=== PATIENT | female | born 1965 | race Hispanic/Latino ===

== ENCOUNTER 2021-05-27 09:47 | Day surgery (SDC) | payer OTHER, SELFPAY | END 2021-05-27 11:40 | disposition home or self-care (01) | LOC: CSHSDC/OP 09:47 | PROVIDERS: ATTEND Internal Medicine | DX: Z23 Encounter for immunization (principal); U07.1 COVID-19 | CPT/HCPCS: 96365; J3490; M0243; Q0244 ==

== ENCOUNTER 2023-05-15 13:39 | Outpatient (CLI) | payer BC | END 2023-05-15 13:40 | disposition home or self-care (01) | LOC: CSHMAMMO 13:39 | PROVIDERS: ATTEND Internal Medicine | DX: Z12.31 Encounter for screening mammogram for malignant neoplasm of breast (principal) | CPT/HCPCS: 77063; 77067 ==